=== PATIENT | male | born 1960 | race Caucasian/White ===

== ENCOUNTER 2020-10-01 00:35 | Emergency (ER) | payer BC, SELFPAY ==
[2020-10-01 00:42] VITALS: BP 154/89; PULSE 62; RESP 16; TEMP 36.2; O2SAT 97; BMI 31.0
--- NOTE | 2020-10-01 00:52 | W.ED.EYEPROB ---
HPI - Eye Problem General: Chief complaint: Eye Problems Stated complaint: R EYE INJURY Time Seen by Provider: 10/01/20 00:40 History of Present Illness: HPI Narrative: Patient is a 60-year-old male comes to the ED with right eye injury. Patient says that just prior to arrival he excellently put some cold sore medication (Campho-Phenique) into right eye. He is now complaining of having some burning and pain in right eye. He also endorses having some redness to the right eye as well. He says immediately after getting medication and he rinsed it out with distilled water. Denies any other symptoms. Associated symptoms: Denies fever(s), headache(s), nausea, neck pain or vomiting Review of Systems Const: Denies: fever(s), chills or fatigue Eyes: Reports: blurry vision (right eye), eye discomfort (right eye) and eye redness (right eye); Denies: change in vision ENMT: Denies: throat pain, odynophagia, nasal discharge or nasal congestion Card: Denies: chest pain, palpitations, edema, swelling of feet/ankles, dyspnea on exertion or orthopnea Resp: Denies: dyspnea, productive cough or non-productive cough GI: Denies: abdominal pain, nausea, vomiting, diarrhea, constipation or hematochezia : Denies: flank pain, difficulty urinating, dysuria or hematuria Musc: Denies: neck pain, back pain or extremity swelling Skin/Breast: Denies: rash or new lesions Neuro: Denies: headache(s), numbness in extremities or weakness in extremities Physical Exam Const: COMMON NORMALS: no acute distress, patient oriented x3 and alert GENERAL APPEARANCE: cooperative and comfortable HENMT: COMMON NORMALS: normocephalic HEAD & SCALP: normocephalic MOUTH: Normal oral and palatal mucosa present THROAT: posterior oropharynx normal and uvula midline Eye: COMMON NORMALS: Equal, round and reactive pupils present, EOMs intact bilaterally and normal visual maynard by confrontation CONJUNCTIVA: Yes conjunctival abnormal positive right conjunctival injection diffuse PUPIL: Yes Equal, round and reactive pupils present SLIT LAMP EXAM: Yes slit lamp exam performed with fluorescein and No cornea OTHER: Slit lamp exam with fluorescein showed no acute findings. Neck/C-Spine: COMMON NORMALS: supple GENERAL: Yes normal visual inspection Resp: COMMON NORMALS: normal respiratory effort, No retractions, No use of accessory muscles and clear to auscultation bilaterally AUSCULTATION: clear to auscultation bilaterally Cardio: COMMON NORMALS: regular rate, regular rhythm, S1 normal heart sound present, S2 normal heart sound present, No gallops present (Cardio), No clicks present (Cardio), No murmurs present (Cardio) and Peripheral pulses 2+ throughout RATE: regular rate RHYTHM: regular rhythm HEART SOUNDS: S1 normal heart sound present and S2 normal heart sound present PERIPHERAL PULSES: Peripheral pulses 2+ throughout GI: COMMON NORMALS: Normal to inspection, nondistended, normoactive bowel sounds present, Soft to palpation, non-tender and no masses PALPATION: Yes Soft to palpation : COMMON NORMALS: Yes no CVA tenderness BLADDER/KIDNEY EXAM: Yes no CVA tenderness Back/Pelvis: COMMON NORMALS: no CVA tenderness Extremity: COMMON NORMALS: normal to inspection Neuro: COMMON NORMALS: patient oriented x3 and moves all extremities SENSORIUM/ORIENTATION: Yes alert Skin: GENERAL SKIN EXAM: dry skin Course ED course: Took patient with to the eyewash station and he rinsed his right eye out for approximately 5 minutes. Vital Signs: Vital signs: Vital Signs Temperature 98 F 10/01/20 02:11 Pulse Rate 85 10/01/20 02:11 Respiratory Rate 18 10/01/20 02:11 Blood Pressure 154/89 10/01/20 00:42 Pulse Oximetry 97 10/01/20 02:11 MDM - Eye Problem MDM Narrative: Medical decision making narrative: Patient is a 60-year-old male who comes to the ED with right eye pain and irritation after getting a cold sore medication in night. Patient irrigated his eye at home and when he got here to the ED I took him to the eyewash station and he rinsed his right eye out for another 5 minutes. Exam shows some diffuse conjunctival injection. The rest of eye exam was benign. Slit lamp exam with fluorescein showed no abrasions to the cornea. I researched Campho-Phenique in eye and all studies show no long-term adverse effects on either. Patient diagnosed with chemical conjunctivitis of right eye and he was discharged home with some Maxitrol. He was told to follow-up with his eye doctor on Saturday. He was told to return to the ED immediately with he does not have any improvement or worsening symptoms within the next 48 hours. Patient understood agree with plan. Discharge Plan Discharge Patient Disposition: Home Clinical Impression: Chemical conjunctivitis of right eye Condition: Stable Prescriptions: New Maxitrol 3.5mg/mL-10,000 unit/mL-0.1 % drops,suspension 1 drp ophthalmic (eye) Q8H 5 Days Qty: 5 RF: 0 Discharge Orders: Discharge ED (Routine); Ordered 10/01/20 Ordered By: Josué Redding Referrals: Alexi Reyes MD [Primary Care Provider] - Discharge Diet: Regular Discharge Activity: Resume usual activity Patient Instructions: Conjunctivitis (ED) Activity Restrictions/Additional Instructions: Follow-up with your eye doctor on Saturday for reevaluation. If symptoms are not improving in the next 48 hours return to the ED immediately. Take medications as prescribed. Return to the ER or your medical provider if condition worsens. Please read and understand discharge instructions. Thank you for choosing [facility] for your healthcare needs today. Please realize this is an emergency room and that we are providing you with a medical screening exam and this may not be complete and all inclusive of all the testing and or work up that you may need to determine your ailment or severity of your illness. It is very important that you follow up as instructed or that you return to the Emergency Department should you have concerns or if your condition changes or worsens in any way. Coding Level of Care Code ED [facility] Nurse for [facility] Exam Comprehensive
[2020-10-01] MEDS: fluorescein 1 mg Strip EYE-RIGHT (01:26)
[2020-10-01] MEDS: HYDROcodone-acetaminophen 5-325 mg Tablet 1 TAB PO (01:27)
[2020-10-01] MEDS: eye irrigation 30 mL Btl EYE-RIGHT (01:28)
[2020-10-01] MEDS: neomycin-poly-dex Op oint 3.5 gm 1 APPLIC EYE-RIGHT (01:29)
[2020-10-01] MEDS: tetracaine 0.5% Op Soln 4 mL Btl 1 DROP EYE-RIGHT (01:30)
[2020-10-01 02:11] VITALS: PULSE 85; RESP 18; TEMP 36.6; O2SAT 97
== END 2020-10-01 02:14 | disposition home or self-care (01) ==
PROVIDERS: Emergency Provider Physician Assistant; PCP Internal Medicine
DX: H10.211 Acute toxic conjunctivitis, right eye (principal)
CPT/HCPCS: 99283